=== PATIENT | female | born 1965 | race Caucasian/White ===

== ENCOUNTER 2022-02-17 13:58 | Emergency (ER) | payer OTHER, SELFPAY ==
--- NOTE | ~2022-02-17 | CT_ITS ---
EXAMINATION: CT foot RT wo con DATE: 02/17/2022 15:07 INDICATION: Right calcaneus fracture. TECHNIQUE: Computed tomography (CT) of the right foot was performed without intravenous contrast. Aut omated exposure control and iterative reconstruction technique were employed. The dose-length product was 492.74 mGy-cm. COMPARISON: None FINDINGS: There is a nondisplaced comminuted fracture of calcaneus involving the tuberosity, body, an d middle facet. Involvement of the posterior facet is not identified. There is mild osteoarthritis of talonavicular joint and some of the interphalangeal joints. There is moderate osteoarthritis of firs t metatarsophalangeal joint. IMPRESSION: 1. Nondisplaced comminuted fracture of calcaneus. 2. Polyarticular osteoarthritis. Reviewed, dictated and finalized at location A.
[2022-02-17 14:01] VITALS: BP 129/89; PULSE 83; RESP 14; TEMP 36.9; O2SAT 100
--- NOTE | 2022-02-17 14:51 | ED.LOWEXIN ---
HPI - Extremity Injury (Lower) General Chief Complaint: Extremity Injury, Lower Stated Complaint: right calcaneous fracture Time Seen by Provider: 02/17/22 14:09 History of Present Illness HPI Narrative: 56-year-old female presents to the ER today for complaints of right heel pain. She fell from her nightstand on Sunday while she was doing some home improvement project. She is not sure how she landed but she had pain in her heel that felt more serious than just a bruise. She went to [facility] ER on Sunday for evaluation and they did an x-ray. They found that she had a fracture in her calcaneus bone. They were not able to tell on the x-ray how far the fracture extended. She was able to get into an orthopedic provider near her home on Sunday. He told her that it was a more severe injury than he would be able to manage. She has had a very difficult time trying to find another orthopedic provider that can see her in a timely fashion. Her doctor called her today and told her that Dr. Lauren staff's this hospital and that she would just need to come to our ER to get evaluation so that she can get a consultation with him for follow-up. She was also told that she would need a CT scan to further evaluate the fracture to see if it extends all the way up into the joint. Related Data Home Medications Medication Instructions Recorded Confirmed No Home Medications 02/17/22 02/17/22 Allergies Allergy/AdvReac Type Severity Reaction Status Date / Time No Known Allergies Allergy Verified 02/17/22 14:09 Review of Systems Review of Systems: CONSTITUTIONAL: Denies fever, chills, or sweats. EYES: Denies visual changes, redness, or discharge. ENT: Denies rhinorrhea, congestion, sore throat, or otalgia. CARDIOVASCULAR: Denies chest pain, palpitations, or edema. RESPIRATORY: Denies cough or dyspnea. GASTROINTESTINAL: Denies abdominal pain, nausea, vomiting, or diarrhea. GENITOURINARY: Denies dysuria or hematuria. SKIN: Denies rash or itching. MUSCULOSKELETAL: As per HPI NEUROLOGIC: Denies headache, numbness, dizziness, or weakness. PSYCHIATRIC: Denies anxiety or depression. Exam Narrative: GENERAL: Well-appearing, well-nourished, and in no acute distress. HEAD: Normocephalic, atraumatic. NECK: Supple. No adenopathy or masses. No carotid bruits or JVD CHEST: Clear to auscultation. No respiratory distress. No wheezes rales or rhonchi HEART: Regular rate and rhythm. No murmur heard. Normal peripheral pulses. EXTREMITIES: Normal range of motion. Musculoskeletal: Tenderness and swelling right heel, bruising noted to sole of foot and lateral aspect of right heel SKIN: Warm, dry, no rash. NEURO: No focal deficits. Alert and oriented x3. PSYCH: Normal mood and affect. Course Course Emergency Course: [address] Silverio, he has reviewed the CT report and the injury will be non surgical requring casting and non weight bearing. He says that she can follow up with the ortho she has already seen or in his office for follow up whichever her preference. Vital Signs Vital signs: Vital Signs Temperature 36.9 C 02/17/22 14:01 Pulse Rate 83 02/17/22 14:01 Respiratory Rate 14 02/17/22 14:01 Blood Pressure 129/89 02/17/22 14:01 Pulse Oximetry 100 02/17/22 14:01 Oxygen Delivery Room Air 02/17/22 14:01 Temperature 36.9 C 02/17/22 14:01 Pulse Rate 83 02/17/22 14:01 Respiratory Rate 14 02/17/22 14:01 Blood Pressure 129/89 02/17/22 14:01 Pulse Oximetry 100 02/17/22 14:01 Oxygen Delivery Room Air 02/17/22 14:01 MDM - Extremity Injury (Lower) Imaging Data Radiologist's impression: EXAMINATION: CT foot RT wo con DATE: 02/17/2022 15:07 INDICATION: Right calcaneus fracture. TECHNIQUE: Computed tomography (CT) of the right foot was performed without intravenous contrast. Automated exposure control and iterative reconstruction technique were employed. The dose-length product was
== END 2022-02-17 16:49 | disposition home or self-care (01) ==
PROVIDERS: Emergency Provider Nurse Practitioner Family
DX: S92.044A Nondisplaced other fracture of tuberosity of right calcaneus, initial encounter for closed fracture (principal); S92.014A Nondisplaced fracture of body of right calcaneus, initial encounter for closed fracture; S92.001A Unspecified fracture of right calcaneus, initial encounter for closed fracture; W08.XXXA Fall from other furniture, initial encounter
CPT/HCPCS: 29515; 73700; 99284